=== PATIENT | female | born 1960 | race Caucasian/White ===

== ENCOUNTER 2017-10-14 01:36 | Observation (INO) | payer OTHER ==
[2017-10-14] MEDS ORDERED: HYDROmorphONE/DILAUDID 2 MG/ML INJ IVP ONE (01:45)
[2017-10-14] MEDS ORDERED: ONDANSETRON 4 MG/2 ML VIAL IVP ONE (01:45)
[2017-10-14] MEDS ORDERED: NS 1,000 ML IV ONE ×2 (01:45→03:10)
--- NOTE | 2017-10-14 01:45 | EDPHY ---
H & P Stated Complaint: abd pain, nausea Time Seen by Provider: 10/14/17 01:45 HPI/ROS: HPI CHIEF COMPLAINT: Abdominal pain times 24 hr. HISTORY OF PRESENT ILLNESS: 57-year-old female, otherwise healthy, just flew back from the [place], she states prior to getting on the flight she developed some abdominal pain. It has been present for 24 hr. It comes in waves, it has a constant generalized abdominal pain but sharp stabbing pain in her upper abdomen and lower abdomen. Also hurts depressed. She denies any vomiting but does have nausea. Denies diarrhea. [place] warm but no recorded temperature. Past Medical History: Denies significant medical history Past Surgical History: Cholecystectomy Social History: Denies drugs, denies daily use tobacco or alcohol. Family History: Noncontributory ROS REVIEW OF SYSTEMS: 10 Systems were reviewed and negative with the exception of the elements mentioned in the history of present illness. Exam Constitutional nontoxic, triage nursing summary reviewed, vital signs reviewed , awake/alert. Eyes normal conjunctivae and sclera, EOMI, PERRLA. HENT normal inspection, atraumatic, moist mucus membranes, no epistaxis, neck supple/ no meningismus, no raccoon eyes. Respiratory clear to auscultation bilaterally, normal breath sounds, no respiratory distress, no wheezing. Cardiovascular rate normal, regular rhythm, no murmur, no edema, distal pulses normal. Gastrointestinal tender throughout the abdomen, mainly tender lower abdomen right and left lower quadrant. Genitourinary no CVA tenderness. Musculoskeletal no midline vertebral tenderness, full range of motion, no calf swelling, no tenderness of extremities, no meningismus, good pulses, neurovascularly intact. Skin pink, warm, & dry, no rash, skin atraumatic. Neurologic awake, alert and oriented x 3, AAOx3, moves all 4 extremities equally, motor intact, sensory intact, CN II-XII intact, normal cerebellar, normal vision, normal speech. Psychiatric normal mood/affect. Heme/Lymph/Immune no lymphadenopathy. Differential diagnosis includes but is not limited to and in no particular order : Bowel obstruction, appendicitis, diverticulitis, colitis, enteritis, perforated viscus, gastritis, GERD, esophagitis, urinary tract infection, pyelonephritis, kidney stones Medical Decision Making: Plan for this patient IV establishment IV fluid bolus , IV Dilaudid for pain control IV Zofran for nausea, IV fluid bolus, labs, CT scan abdomen pelvis with IV contrast. Re-evaluation: CT SCAN ABDOMEN PELVIS WITH IV CONTRAST SHOWS AN ENTERITIS. THIS WAS CALLED TO ME BY DR. Paredes. Unable to visualize the appendix. I did go reexamine the patient at 3:15 a.m. In the morning and she is feeling better however still has ongoing abdominal pain. We discussed different treatment options about going home and returning if worse worsening today for observation in the hospital she would prefer to stay today in the hospital for observation IV fluids and further pain control. Were unable to see her appendix on the CT. I think appendicitis is unlikely. Most likely enteritis. No evidence of obstruction she is not vomiting. Plan will be for admission observation. Source: Patient - Personal History Current Tetanus/Diphtheria Vaccine: Yes - Medical/Surgical History Hx Asthma: No Hx Chronic Respiratory Disease: No Hx Diabetes: No Hx Cardiac Disease: No Hx Renal Disease: No Hx Cirrhosis: No Hx Alcoholism: No Hx HIV/AIDS: No Hx Splenectomy or Spleen Trauma: No Other PMH: gallstones, kindey stones, gallbladder removed - Social History Smoking Status: Never smoked Constitutional: Initial Vital Signs Temperature (C) 36.9 C 10/14/17 01:38 Heart Rate 80 10/14/17 01:38 Respiratory Rate 16 10/14/17 01:38 Blood Pressure 106/74 10/14/17 01:38 O2 Sat (%) 94 10/14/17 01:38 O2 Delivery Mode Room Air Allergies/Adverse Reactions: No Known Allergies Allergy (Unverified 10/14/17 01:41) Home Medications: Medication Instructions Recorded Ondansetron Odt [Zofran Odt 4 mg 4 mg PO Q4 PRN #12 tab 10/14/17 (*)] Promethazine HCl [Phenergan 12.5mg 12.5 mg PO Q6 PRN #12 tablet 10/14/17 tab] Medical Decision Making - Data Points Laboratory Results: Laboratory Results 10/14/17 02:00 10/14/17 02:00 Medications Given: Discontinued Medications Acetaminophen (Tylenol) 650 mg PO Q4HRS PRN PRN Reason: Pain, Mild/Fever, Can Take PO Stop: 04/12/18 03:51 Last Admin: 10/14/17 16:58 Dose: 650 mg Hydrocodone Bitart/Acetaminophen ([place] 5/325) 1 - 2 tab PO Q4HRS PRN PRN Reason: Pain, Moderate Able to Take PO Stop: 10/24/17 03:51 Last Admin: 10/14/17 10:27 Dose: 1 tab Hydromorphone HCl (Dilaudid) 0.5 mg IVP EDNOW ONE Stop: 10/14/17 01:46 Last Admin: 10/14/17 01:56 Dose: 0.5 mg Sodium Chloride (Ns) 1,000 mls @ 0 mls/hr IV EDNOW ONE; Wide Open PRN Reason: Protocol Stop: 10/14/17 01:46 Last Admin: 10/14/17 01:56 Dose: 1,000 mls Sodium Chloride (Ns) 1,000 mls @ 0 mls/hr IV ONCE ONE PRN Reason: Wide Open Stop: 10/14/17 03:11 Last Admin: 10/14/17 03:16 Dose: 1,000 mls Sodium Chloride (Ns) 1,000 mls @ 125 mls/hr IV CONT CYNTHIA Stop: 04/12/18 03:59 Last Admin: 10/14/17 13:54 Dose: 1,000 mls Ketorolac Tromethamine (Toradol) 15 mg IVP EDNOW ONE Stop: 10/14/17 03:11 Last Admin: 10/14/17 03:16 Dose: 15 mg Lorazepam (Ativan) 0.5 - 1 mg PO Q8HRS PRN PRN Reason: Anxiety, Able to Take PO Stop: 04/12/18 03:51 Last Admin: 10/14/17 04:09 Dose: 0.5 mg Lorazepam (Ativan) 1 mg PO EDNOW ONE Stop: 10/14/17 03:56 Last Admin: 10/14/17 04:40 Dose: Not Given Ondansetron HCl (Zofran) 4 mg IVP EDNOW ONE Stop: 10/14/17 01:46 Last Admin: 10/14/17 01:56 Dose: 4 mg Departure - Departure Disposition: [facility] Acute Clinical Impression: Abdominal pain Qualifiers: Abdominal location: generalized Qualified Code(s): R10.84 - Generalized abdominal pain Condition: Fair
[2017-10-14 02:21] LABS: PLATELET COUNT 234 10^3/uL (150-400)
[2017-10-14] MEDS ORDERED: IOPAMIDOL (ISOVUE-300) 100 ML BTL ONE (02:26)
[2017-10-14 02:29] LABS: INR 1.01 (0.83-1.16); PROTIME(PATIENT) 13.5 SEC (12.0-15.0)
[2017-10-14] MEDS ORDERED: KETOROLAC 15 MG/1 ML SDV IVP ONE (03:10)
[2017-10-14] MEDS ORDERED: PROMETHAZINE HCL 25 MG/ML INJ IVP PRN (03:52)
[2017-10-14] MEDS ORDERED: LORazepam 0.5 MG TAB PO PRN (03:52)
[2017-10-14] MEDS ORDERED: ACETAMINOPHEN 325 MG TAB PO PRN (03:52)
[2017-10-14] MEDS ORDERED: HYDROCODONE/APAP 5/325 TAB PO PRN (03:52)
[2017-10-14] MEDS ORDERED: ONDANSETRON 4 MG/2 ML VIAL IVP PRN (03:52)
[2017-10-14] MEDS ORDERED: LORazepam 0.5 MG TAB PO ONE (03:55)
[2017-10-14] MEDS ORDERED: LORazepam 0.5 MG TAB ONE (03:58)
--- NOTE | 2017-10-14 04:01 | PDGENHP ---
History and Physical - Chief Complaint Abdominal pain - History of Present Illness Source-patient provides history appears reliable. Her is bedside supplements details. EMR was reviewed and case discussed with ED provider. HPI - is a very pleasant 57-year-old female with no significant chronic medical issues who presents emergency department today with complaints of 24 hr of abdominal pain. Patient reports that her symptoms started before her flight from the [place]. She was visiting her family there and reports upper abdominal colicky pain alternating with sharp stabbing pain in the upper abdomen radiating down to her lower abdomen. Patient also notes some abdominal distention as well as nausea. She denies any vomiting or diarrhea. Patient denies any fevers but she has been experiencing some chills and she has arrived home from the airport. He in patient reports that her abdominal pain became so severe that she could not tolerated any longer and came to the emergency department for evaluation. Patient also notes in the last week she has developed hoarseness as well sore throat. She did have exposure to sick contact her mother who had nausea vomiting diarrhea. Patient also reports cough congestion no without fevers. She denies any myalgias or joint pain. Additionally patient reports that she feels very dehydrated and notes that her urine is very bright colored and concentrated. She denies any dysuria hematuria flank pain. She does have a history remotely of kidney stones. History Information - Allergies/Home Medication List Allergies/Adverse Reactions: No Known Allergies Allergy (Unverified 10/14/17 01:41) Home Medications: NK [No Known Home Meds] 10/14/17 [Last Taken Unknown] I have personally reviewed and updated: family history, medical history, social history, surgical history - Past Medical History Additional medical history: Kidney stones, history of parathyroid tumor status post resection, history of melanoma status post resection no chemo - Surgical History Additional surgical history: Open Cholecystectomy, parathyroid tumor resection, skin skin cancer resection - Family History Additional family history: Mother with history angina living 91. Father healthy 94. No family history of IBD or colon cancer - Social History Smoking Status: Never smoked Alcohol Use: Occasionally Drug Use: None Additional social history: Patient is lives with her . She is originally from the [place] and lives here [place]. She is very active and fit. Cor status-full. Review of Systems Review of Systems: ROS: 10pt was reviewed & negative except for what was stated in HPI & below Constitutional: Reports: chills, recent illness (Respiratory and abdominal pain symptoms see HPI). Denies: fever, weight loss EENMT: Reports: nose congestion, sore throat, other (Hoarseness). Denies: blurred vision Cardiac: Reports: no symptoms Respiratory: Reports: cough. Denies: shortness of breath Gastrointestinal: Reports: abdominal pain, abdominal distention, nausea. Denies : vomitting, diarrhea Genitourinary: Reports: no symptoms Muscolosketal: Reports: no symptoms Skin: Reports: no symptoms Neurological: Reports: no symptoms Hematologic/Lymphatic: Reports: no symptoms Physical Exam Physical Exam: Selected Entries 10/14/17 01:38 Blood Pressure Automatic Method Heart Rate 80 Respiratory 16 Rate O2 Sat (%) 94 Temperature (C) 36.9 C Blood Pressure 106/74 Mean Arterial 84 Pressure (MAP) O2 Delivery Room Air Mode Temperature Oral Source Temp Pulse Resp BP Pulse Ox 36.9 C 62 20 124/69 H 98 10/14/17 01:38 10/14/17 03:44 10/14/17 03:44 10/14/17 03:44 10/14/17 03:44 O2 (L/minute) 2 Constitutional: no apparent distress, appears nourished, other (NAD. Pleasant adult female is lying quietly in bed. She does appear fatigued and dehydrated but otherwise in good spirits. at bedside.) Eyes: PERRL (Slightly decreased reactivity light bilaterally but symmetric), EOMI, No anicteric sclera, No scleral injection Ears, Nose, Mouth, Throat: dry mucous membranes, other (No nasal discharge, hoarseness.), No poor dentition Cardiovascular: regular rate and rhythym, no murmur, rub, or gallop, No edema Peripheral Pulses: 2+: dorsalis-pedis (R), dorsalis-pedis (L) Respiratory: no respiratory distress, no rales or rhonchi, clear to auscultation , No reduced air movement, No respiratory distress Gastrointestinal: normoactive bowel sounds, no palpable masses, other (Patient is complaining of abdominal distension and just generalized discomfort but no localized pain to palpation. Patient tenses slightly during exam and abdominal contractions limit and evaluation. Appears voluntary. Abdomen is not rigid.), No tenderness, No distension Skin: warm, no rashes or abrasions, No rash Musculoskeletal: full muscle strength, no muscle tenderness, No generalized weakness Neurologic: AAOx3, sensation intact bilaterally, other (Grossly nonfocal exam.) , No facial droop Psychiatric: interacting appropriately, not anxious, not encephalopathic, thought process linear, other (Thought process content and questions are all appropriate. Patient is pleasant and cooperative.) Lab Data & Imaging Review 10/14/17 02:00 10/14/17 02:00 WBC 12.26 10^3/uL (3.80-9.50) H 10/14/17 02:00 RBC 4.28 10^6/uL (4.18-5.33) 10/14/17 02:00 Hgb 13.7 g/dL (12.6-16.3) 10/14/17 02:00 Hct 39.2 % (38.0-47.0) 10/14/17 02:00 MCV 91.6 fL (81.5-99.8) 10/14/17 02:00 MCH 32.0 pg (27.9-34.1) 10/14/17 02:00 MCHC 34.9 g/dL (32.4-36.7) 10/14/17 02:00 RDW 12.4 % (11.5-15.2) 10/14/17 02:00 Plt Count 234 10^3/uL (150-400) 10/14/17 02:00 MPV 10.2 fL (8.7-11.7) 10/14/17 02:00 Neut % (Auto) 83.9 % (39.3-74.2) H 10/14/17 02:00 Lymph % (Auto) 10.0 % (15.0-45.0) L 10/14/17 02:00 [place] % (Auto) 5.2 % (4.5-13.0) 10/14/17 02:00 Eos % (Auto) 0.2 % (0.6-7.6) L 10/14/17 02:00 Baso % (Auto) 0.2 % (0.3-1.7) L 10/14/17 02:00 Nucleat RBC Rel Count 0.0 % (0.0-0.2) 10/14/17 02:00 Absolute Neuts (auto) 10.29 10^3/uL (1.70-6.50) H 10/14/17 02:00 Absolute Lymphs (auto) 1.22 10^3/uL (1.00-3.00) 10/14/17 02:00 Absolute Monos (auto) 0.64 10^3/uL (0.30-0.80) 10/14/17 02:00 Absolute Eos (auto) 0.02 10^3/uL (0.03-0.40) L 10/14/17 02:00 Absolute Basos (auto) 0.03 10^3/uL (0.02-0.10) 10/14/17 02:00 Absolute Nucleated RBC 0.00 10^3/uL (0-0.01) 10/14/17 02:00 Immature Gran % 0.5 % (0.0-1.1) 10/14/17 02:00 Immature Gran # 0.06 10^3/uL (0.00-0.10) 10/14/17 02:00 PT 13.5 SEC (12.0-15.0) 10/14/17 02:00 INR 1.01 (0.83-1.16) 10/14/17 02:00 APTT 28.6 SEC (23.0-38.0) 10/14/17 02:00 VBG Lactic Acid 0.6 mmol/L (0.7-2.1) L 10/14/17 02:20 Sodium 139 mEq/L (135-145) 10/14/17 02:00 Potassium 3.8 mEq/L (3.3-5.0) 10/14/17 02:00 Chloride 103 mEq/L (97-110) 10/14/17 02:00 Carbon Dioxide 27 mEq/l (22-31) 10/14/17 02:00 Anion Gap 9 mEq/L (8-16) 10/14/17 02:00 BUN 12 mg/dL (7-23) 10/14/17 02:00 Creatinine 0.8 mg/dL (0.6-1.0) 10/14/17 02:00 Estimated GFR > 60 10/14/17 02:00 Glucose 112 mg/dL (70-100) H 10/14/17 02:00 Calcium 9.7 mg/dL (8.5-10.4) 10/14/17 02:00 Total Bilirubin 1.3 mg/dL (0.1-1.4) 10/14/17 02:00 Conjugated Bilirubin 0.1 mg/dL (0.0-0.5) 10/14/17 02:00 Unconjugated Bilirubin 1.2 mg/dL (0.0-1.1) H 10/14/17 02:00 AST 25 IU/L (14-46) 10/14/17 02:00 ALT 38 IU/L (9-52) 10/14/17 02:00 Alkaline Phosphatase 84 IU/L (38-126) 10/14/17 02:00 Total Protein 6.9 g/dL (6.3-8.2) 10/14/17 02:00 Albumin 4.1 g/dL (3.5-5.0) 10/14/17 02:00 Lipase 62 IU/L (23-300) 10/14/17 02:00 Imaging Review: CT abdomen/pelvis reviewed as well as preliminary Radiology report. Moderate fecal material, minimal small bowel dilatation; ? enteritis Trace of free fluid in pelvis; no free air abnl appy not seen No nephrolithiasis or hydro ; probable renal cysts Minimal intrahepatic biliary ductal dilatation, CBD 9-10mm GB surgically absent, pacn nl Basilar atelectasis Called to ER @ 0310 hrs Visualized and Interpreted imaging results: Yes Assessment & Plan Assessment: Pleasant 57-year-old female otherwise healthy who presents emergency department with complaints of 24 hr abdominal cramping and nausea Abdominal pain (Acute) - due to enteritis noted on CT abdomen pelvis. Will obtain a KUB in the morning to ensure there is no evolving bowel obstruction. Additionally patient also with some viral type symptoms with hoarseness congestion and cough. Discussed with the patient likely viral type syndrome given she does have a positive sick contact of her mother who developed what sounds like a viral gastroenteritis including nausea vomiting diarrhea and likely contracted the same viral illness during her visit. Patient is describing significant intermittent colicky type pain. She received Dilaudid in the emergency department with improvement of her symptoms. Patient will be admitted for supportive care. Dehydration - IV fluids have been ordered she has received 2 L of normal saline in the emergency department. Will try to continue to control her nausea and encourage oral hydration. Leukocytosis - likely reactive in setting of acute enteritis. If patient develops worsening respiratory symptoms will obtain an EKG as well at this time are lung exam is clear. Bibasilar atelectasis - lungs sound clear on exam. Basilar atelectasis noted as on CT abdomen pelvis. Will order a incentive spirometer. FEN - IVF as noted above. electrolytes adequate do not require replacement at this time. advance diet as tolerated. PPX - SCDs. holding anticoagulation as patient low risk and anticipate short hospital stay. Will encourage mobilization. COR - FULL. Disposition - Patient admitted to observation status on the medical floor for supportive care overnight and reassessment plans as noted above.
[2017-10-14] MEDS: NS 1,000 ML IV SCH ×2 (05:59→13:54)
--- NOTE | 2017-10-14 15:01 | ASMTCMCOM ---
CM Note CM Note Notes: Pt's chart reviewed for d/c planning. Pt is a 57 y/o female who came to the ED due to 24 hours of abdominal pain. It has been diagnosed as entiritis and is being treated. Pt just returned from [place]. She lives at home independently with her , Alex # [phone]. No CM needs have been identified. CM will follow for changes. D/C Plan: Anticipate independent. Date Signed: 10/14/2017 03:01 PM Electronically Signed By:Enid Sarkar
--- NOTE | 2017-10-14 15:15 | HOSPPROG ---
Hospitalist Progress Note Assessment/Plan: 57 yo f w viral gastroenteritis home today w antiemetics see dc summary Subjective: amenable to dc Objective: Vital Signs Temp Pulse Resp BP Pulse Ox 37.2 C 79 14 125/63 H 100 10/14/17 12:00 10/14/17 12:00 10/14/17 12:00 10/14/17 12:00 10/14/17 12:00 10/13/17 10/14/17 10/15/17 05:59 05:59 05:59 Output Total 900 Balance -900 PT 13.5 SEC (12.0-15.0) 10/14/17 02:00 INR 1.01 (0.83-1.16) 10/14/17 02:00 - Physical Exam Constitutional: no apparent distress, appears nourished Eyes: PERRL, anicteric sclera Ears, Nose, Mouth, Throat: moist mucous membranes, hearing normal Cardiovascular: regular rate and rhythym, no murmur, rub, or gallop Respiratory: no respiratory distress, no rales or rhonchi Gastrointestinal: normoactive bowel sounds, soft, non-tender abdomen, No guarding, No rebound Genitourinary: no bladder fullness, No youssef in urethra Skin: warm, normal color Musculoskeletal: full muscle strength Neurologic: AAOx3 ICD10 Worksheet Patient Problems: Problems Problem Status Onset Abdominal pain Acute
--- NOTE | 2017-10-14 16:01 | ASMTLACE ---
LACE Length of stay for Answers: Less than 1 day current admission Acuity / Level of Answers: No Care: Did the patient have an inpatient admission? Comorbidities - select Answers: Other Notes: Hx of parathroid all that apply tumor; Hx of kidney stones # of Emergency department Answers: 1-2 visits in the last 6 months Score: 2 Date Signed: 10/14/2017 04:00 PM Electronically Signed By:Enid Sarkar
[2017-10-14 17:04] VITALS: BP 117/63
--- NOTE | 2017-10-14 17:34 | GDS ---
DISCHARGE DIAGNOSES: Viral enteritis. Please see admission history and physical by Dr. Patricia Fontana . The patient presented with abdominal pain, distention. She had a recent upper respiratory-like in fection. Evaluation was notable for leukocytosis. No vomiting. CT scan consistent with enteritis w ithout intraabdominal catastrophe. The patient was receiving IV fluids and antiemetics with improvem ent of her symptoms, although she still had some pain. The patient has a hearing for citizenship sta [facility] [employer] (she is from the ) tomorrow in [place], so she wishes to be discharged this evening. She is advised to return for fever, chills, hematemesis, coffee-ground emesis. /[id number]/MODL
[2017-10-14] MEDS ORDERED: PANTOPRAZOLE SODIUM 40 MG TAB PO SCH (21:00)
== END 2017-10-14 18:12 | disposition home or self-care (01) ==
LOC: F1N 04:31
PROVIDERS: ADMIT Family Medicine; ATTEND Internal Medicine
DX: A08.4 Viral intestinal infection, unspecified (principal); E86.0 Dehydration
CPT/HCPCS: 74177; 96361; 96374; 96375; 99285; G0378; J1170; J1885; J2405; Q9967